=== PATIENT | female | born 1980 | race African-American/Black ===

== ENCOUNTER 2022-10-07 08:15 | Day surgery (SDC) | payer OTHER ==
[2022-10-05 10:51] VITALS: BMI 33.0
[2022-10-07] MEDS ORDERED: fentaNYL PF 100 MCG/2 ML SYRINGE ONE (10:07)
[2022-10-07] MEDS ORDERED: Lidocaine 4% Topical Sol 50 ML BOT ONE (10:40)
[2022-10-07 10:48] LABS: BHCG - Serum POSITIVE (NEGATIVE); Pregs Control Background? CLEAR/WHITE (CLR/WHITE); Pregs Control Bar Appear? YES (CONTROL BAR)
[2022-10-07] MEDS ORDERED: Lidocaine 1% (PF) 30 ML VIAL ONE (10:54)
[2022-10-07] MEDS ORDERED: EPINEPHrine 1 MG/ML AMP ONE (10:54)
[2022-10-07] MEDS ORDERED: Dexamethasone 20 MG/5 ML VIAL ONE (11:04)
[2022-10-07] MEDS ORDERED: Ondansetron PF 4 MG/2 ML Vial ONE (11:04)
[2022-10-07] MEDS ORDERED: Rocuronium Bromide 10 MG/ML (10ML VIAL) ONE (11:04)
[2022-10-07] MEDS ORDERED: PROPOFOL 200 MG/20 ML VIAL ONE (11:04)
[2022-10-07] MEDS ORDERED: SUGAMMADEX SODIUM 200 MG/2 ML VIAL ONE (11:09)
[2022-10-07] MEDS ORDERED: fentaNYL 50 mcg/mL 1 mL Vial ONE ×2 (12:32→13:07)
[2022-10-07] MEDS ORDERED: Hydrocodone-Acetamin 15 ML UDCUP ONE (14:54)
== END 2022-10-07 15:38 | disposition home or self-care (01) ==
LOC: SDC 08:15
PROVIDERS: ATTEND Otolaryngology Plastic Surgery within the Head & Neck
PROC: 0CBG0ZZ Excision of Right Submaxillary Gland, Open Approach (ICD-10-PCS; principal; 2022-10-07)
DX: K11.20 Sialoadenitis, unspecified (principal); K11.6 Mucocele of salivary gland
CPT/HCPCS: 84703; 85014; 88307; J0171; J1100; J2001; J2405; J2704; J3010